=== PATIENT | male | born 1970 | race Caucasian/White ===

== ENCOUNTER 2017-05-03 17:23 | Emergency (ER) | payer MEDICARE, MEDICAID ==
[~2017-05-03] VITALS: Ht 172.7 cm; Wt 74.8 kg
--- NOTE | 2017-05-03 17:55 | NUR ---
at the bedside with the pt for MSE.
--- NOTE | 2017-05-03 18:00 | NUR ---
Cervical collar placed and spinal precautions maintained.
[2017-05-03 18:29] LABS: *BILIRUBIN,URIN NEGATIVE (NEGATIVE); *BLOOD, URINE Trace-lysed (NEGATIVE); *CLARITY,URINE CLEAR (CLEAR); *COLOR,URINE YELLOW (YELLOW); *KETONES,URINE NEGATIVE (NEGATIVE); *PROTEIN,URINE NEGATIVE (NEGATIVE); *UROBILINOGEN,URINE 0.2 E.U./dl (NORMAL); LEUKOCYTE ESTERASE ,URINE NEGATIVE (NEGATIVE); NITRITE, URINE NEGATIVE (NEGATIVE); UGLUCOSE NEGATIVE (NEGATIVE)
[2017-05-03 18:30] LABS: HEMATOCRIT 41.3 % (40-50); HEMOGLOBIN 13.3 G/DL (14.0-18.0); MEAN CORPUSCULAR HEMOGLOBIN 29.7 UUG (27.0-31.0); MEAN CORPUSCULAR HGB CONC 32 g/dL (32.0-37.0); MEAN CORPUSCULAR VOLUME 92.5 FL (82.0-92.0); NEUTROPHILS % (AUTO) 49.4 % (38.5-71.5); PLATELET COUNT (AUTO) 178 K/UL (150-450); RED BLOOD CELL COUNT(AUTO) 4.47 MIL/UL (4.7-6.1); WHITE BLOOD COUNT (AUTO) 4.7 K/UL (4.0-11.2)
[2017-05-03 18:31] LABS: BASOPHILS % (AUTO) 0.6 % (0.0-2.0); EOSINOPHILS % (AUTO) 0.5 % (0.0-7.0); LYMPHOCYTES % (AUTO) 41.8 % (20.5-51.5); MONOCYTES # (AUTO) 0.4 K/UL (0.1-1.30); MONOCYTES % (AUTO) 7.7 % (0.0-11.0); NEUTROPHILS # (AUTO) 2.3 K/UL (1.8-8.9)
[2017-05-03 18:36] LABS: CARBON DIOXIDE 31 mmol/L (21-32); CHLORIDE 106 mmol/L (98-107); GLUCOSE 88 mg/dL (74-106); POTASSIUM 3.9 mmol/L (3.5-5.1); UREA NITROGEN, BLOOD 15 mg/dL (7-18)
[2017-05-03 18:43] LABS: *AMPHETAMINE, URINE NEGATIVE (NEGATIVE); *BARBITURATE, URINE NEGATIVE (NEGATIVE); *CANNABINOID, URINE NEGATIVE (NEGATIVE); *COCCAINE, URINE NEGATIVE (NEGATIVE); *OPIATE, URINE NEGATIVE (NEGATIVE); *PHENCYCLIDINE SCREEN,URINE NEGATIVE (NEGATIVE)
--- NOTE | 2017-05-03 18:43 | NUR ---
Pt brought down with radiology for CT scan.
[2017-05-03 18:44] LABS: RBC,URINE 0-3 /HPF (0-3); WBC,URINE NONE SEEN /HPF (0-3)
[2017-05-03 18:49] LABS: ALANINE AMINOTRANSFERASE 51 U/L (16-63); ALKALINE PHOSPHATASE 87 U/L (50-136); ASPARTATE AMINOTRANSFERASE 74 U/L (15-37); BILIRUBIN,DIRECT 0.1 mg/dL (0.0-0.2); BILIRUBIN,TOTAL 0.3 mg/dL (0.2-1.0); TOTAL PROTEIN, SERUM 7.3 g/dL (6.4-8.2)
[2017-05-03 18:50] LABS: ACETAMINOPHEN < 2.0 ug/mL (10-30)
[2017-05-03 18:51] LABS: ETHANOL 429 MG/DL (0-0)
--- NOTE | 2017-05-03 19:01 | NUR ---
Pt returned from CT scan.
[2017-05-03 19:13] LABS: THYROID STIMULATING HORMONE 0.951 mIU/mL (0.358-3.740)
--- NOTE | 2017-05-03 22:00 | NUR ---
PATIENT IS AWAKE AND ALERT. ABLE TO GET PATIENTS NAME//SS# AT THIS TIME. PATIENT IS ATTEMPTING TO PULL OUT F/C AND IV. WALKING INSIDE IN THE ROOM. DR. REDDY NOTIFIED. OK TO TAKE OUT F/C. F/C REMOVED, PATIENT TOLERATED WELL. IV WAS PULLED OUT BY PATIENT, CATHTER INTACT. DRESSING APPLIED TO IV SITE. PATIENT GETTING DRESSED IN ROOM.
--- NOTE | 2017-05-03 22:15 | NUR ---
PATIENT WALKED OUT SHORTLY AFTER D/C INSTURCTIONS WERE GIVEN BY DR. REDDY VERBALLY. Patient discharged to home in stable conditon. Verbal after care instructions given. Patient verbalizes understanding of instructions.
[2017-05-03 23:12] VITALS: BP 115/68
== END 2017-05-03 23:13 | disposition home or self-care (01) ==
LOC: EDBD 17:24 → ER 17:24
DX: F10.129 Alcohol abuse with intoxication, unspecified (principal); I67.82 Cerebral ischemia; M48.36 Traumatic spondylopathy, lumbar region; R40.20 Unspecified coma; Z59.0 Homelessness
CPT/HCPCS: 36415; 51702; 70450; 71010; 72125; 80048; 80076; 80307; 81001; 82962; 84443; 85025; 93005; 99285; A4663; G0480 ×2; G0481